=== PATIENT | male | born 1965 | race Caucasian/White ===

== ENCOUNTER 2018-05-26 10:59 | Inpatient (IN) | payer OTHER ==
[2018-05-26 11:42] VITALS: BMI 25.4
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
[2018-05-26] MEDS ORDERED: LOPERAMIDE HCL 2 MG CAPSULE PO PRN (12:27)
[2018-05-26] MEDS ORDERED: ACETAMINOPHEN 325 MG TABLET (FP) PO PRN (12:27)
[2018-05-26] MEDS ORDERED: hydrOXYzine PAMOATE 25 MG CAPSULE (FP) PO PRN (12:27)
[2018-05-26] MEDS ORDERED: P-EPHED 60MG/TRIPROLIDI 2.5MG TABLET PO PRN (12:27)
[2018-05-26] MEDS ORDERED: guaiFENesin/D-METHORPHAN HB 10 ML UNIT-DOSE CUPS PO PRN (12:27)
[2018-05-26] MEDS ORDERED: chlordiazePOXIDE HCL 25 MG CAPSULE PO PRN (12:27)
[2018-05-26] MEDS ORDERED: IBUPROFEN 400 MG TABLET (FP) PO PRN (12:27)
[2018-05-26] MEDS ORDERED: MAGNESIUM HYDROX 2400MG/30ML ORAL SUSPENSION 30 ML CUP PO PRN (12:27)
[2018-05-26] MEDS ORDERED: MAGNESIUM CITRATE 300 ML BOTTLE PO PRN (12:27)
[2018-05-26] MEDS ORDERED: MENTHOL/PHENOL 1 EACH UD MM PRN (12:27)
[2018-05-26] MEDS ORDERED: NICOTINE POLACRILEX 2 MG GUM BUC PRN (12:27)
[2018-05-26] MEDS: chlordiazePOXIDE HCL 25 MG CAPSULE PO SCH ×2 (17:29→22:35)
[2018-05-26] MEDS: MAG HYDROX/AL HYDROX/SIMETH 30 ML UNIT-DOSE CUP PO PRN (17:33)
[2018-05-26] MEDS ORDERED: MELATONIN 5 MG TABLETS PO PRN (22:00)
[2018-05-26] MEDS: THIAMINE HCL 100 MG TABLET (FP) PO SCH (22:35)
[2018-05-27] MEDS ORDERED: METHADONE HCL 10 MG TABLET ONE (04:22)
[2018-05-27] MEDS ORDERED: METHADONE HCL 5 MG TABLET ONE (04:23)
[2018-05-27] MEDS ORDERED: METHADONE 30 MG, METHADONE 5 MG PO ONE (06:00)
[2018-05-27] MEDS ORDERED: METHADONE HCL 10 MG TABLET (FOR DETOX USE ONLY) PO ONE (06:00)
[2018-05-27] MEDS: chlordiazePOXIDE HCL 25 MG CAPSULE PO SCH ×4 (06:15→22:49)
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
[2018-05-27] MEDS: PRENATAL VITAMINS W/ FOLIC ACID TABLET (FP) PO SCH (10:29)
[2018-05-27] MEDS: RANITIDINE HCL 150 MG TABLET (FP) PO SCH ×2 (10:30→22:49)
[2018-05-27 10:45] LABS: HEMATOCRIT 39.9 % (35.4-49); HEMOGLOBIN 13.8 GM/dL (11.7-16.9); MCH 30.3 pg (25.7-33.7); MCHC 34.6 g/dl (32.0-35.9); MEAN CELL VOLUME 87.4 fl (80-96); PLATELET COUNT 205 K/MM3 (134-434); RBC 4.56 M/mm3 (4.00-5.60); RDW 13.5 % (11.9-15.9); WHITE BLOOD COUNT 8.4 K/mm3 (4.0-10.0)
[2018-05-27 10:55] LABS: ALBUMIN 3.4 g/dl (3.4-5.0); ALK PHOS 56 U/L (45-117); ANION GAP 7 MMOL/L (8-16); BILIRUBIN,TOTAL 0.2 mg/dL (0.2-1); BLOOD UREA NITROGEN 13 mg/dL (7-18); CALCIUM 8.5 mg/dL (8.5-10.1); CHLORIDE 104 mmol/L (98-107); CO2 28 mmol/L (21-32); CREATININE 0.6 mg/dL (0.55-1.3); GLUCOSE,RANDOM 96 mg/dL (74-106); POTASSIUM 4.2 mmol/L (3.5-5.1); SGOT/AST 19 U/L (15-37); SGPT/ALT 21 U/L (13-61); SODIUM 138 mmol/L (136-145)
[2018-05-27] MEDS: MAG HYDROX/AL HYDROX/SIMETH 30 ML UNIT-DOSE CUP PO PRN (11:22)
--- NOTE | 2018-05-27 11:28 | PN ---
S CIWA - CIWA Score Nausea/Vomitin-Mild Nausea/No Vomiting Muscle Tremors: 4-Moderate,w/Arms Extend Anxiety: 2 Agitation: 2 Paroxysmal Sweats: 1-Minimal Palms Moist Orientation: 1-Uncertain about Date Tacttile Disturbances: 0-None Auditory Disturbances: 0-None Visual Disturbances: 0-None Headache: 1-Very Mild CIWA-Ar Total Score: 12 S Progress Note (SOAP) Subjective: tremor acid burn sweating restlessness Objective: 05/27/18 11:24 Vital Signs Temperature 97.6 F 05/27/18 09:34 Pulse Rate 66 05/27/18 09:34 Respiratory Rate 18 05/27/18 09:34 Blood Pressure 111/61 05/27/18 09:34 O2 Sat by Pulse Oximetry (%) Laboratory Last Values WBC 8.4 K/mm3 (4.0-10.0) 05/27/18 07:35 RBC 4.56 M/mm3 (4.00-5.60) 05/27/18 07:35 Hgb 13.8 GM/dL (11.7-16.9) 05/27/18 07:35 Hct 39.9 % (35.4-49) 05/27/18 07:35 MCV 87.4 fl (80-96) 05/27/18 07:35 MCH 30.3 pg (25.7-33.7) 05/27/18 07:35 MCHC 34.6 g/dl (32.0-35.9) 05/27/18 07:35 RDW 13.5 % (11.9-15.9) 05/27/18 07:35 Plt Count 205 K/MM3 (134-434) 05/27/18 07:35 MPV 9.0 fl (7.5-11.1) 05/27/18 07:35 Sodium 138 mmol/L (136-145) 05/27/18 07:35 Potassium 4.2 mmol/L (3.5-5.1) 05/27/18 07:35 Chloride 104 mmol/L (98-107) 05/27/18 07:35 Carbon Dioxide 28 mmol/L (21-32) 05/27/18 07:35 Anion Gap 7 MMOL/L (8-16) L 05/27/18 07:35 BUN 13 mg/dL (7-18) 05/27/18 07:35 Creatinine 0.6 mg/dL (0.55-1.3) 05/27/18 07:35 Creat Clearance w eGFR > 60 (>60) 05/27/18 07:35 Random Glucose 96 mg/dL (74-106) 05/27/18 07:35 Calcium 8.5 mg/dL (8.5-10.1) 05/27/18 07:35 Total Bilirubin 0.2 mg/dL (0.2-1) 05/27/18 07:35 AST 19 U/L (15-37) 05/27/18 07:35 ALT 21 U/L (13-61) 05/27/18 07:35 Alkaline Phosphatase 56 U/L (45-117) 05/27/18 07:35 Total Protein 8.0 g/dl (6.4-8.2) 05/27/18 07:35 Albumin 3.4 g/dl (3.4-5.0) 05/27/18 07:35 RPR Titer Nonreactive (NONREACTIVE) 05/27/18 07:35 lab noted oral pharyngeal membrane smooth no signs of inflammation denies trouble swallowing denies voice change no shortness of breath tolerate food and fluid well 05/27/18 11:25 Assessment: 05/27/18 11:24 alcohol withdrawal sx 05/27/18 11:25 GERD Plan: continue detox zantac 150 mg bid
[2018-05-27] MEDS: THIAMINE HCL 100 MG TABLET (FP) PO SCH (22:49)
[2018-05-28] MEDS: chlordiazePOXIDE HCL 25 MG CAPSULE PO SCH ×3 (05:39→10:09)
[2018-05-28] MEDS ORDERED: METHADONE HCL 10 MG TABLET PO SCH (08:00)
[2018-05-28] MEDS ORDERED: METHADONE HCL 10 MG TABLET ONE (08:41)
[2018-05-28] MEDS ORDERED: METHADONE HCL 5 MG TABLET ONE (08:41)
[2018-05-28] MEDS: METHADONE 30 MG, METHADONE 5 MG PO SCH (08:45)
[2018-05-28] MEDS: RANITIDINE HCL 150 MG TABLET (FP) PO SCH ×2 (10:09→22:06)
[2018-05-28] MEDS: PRENATAL VITAMINS W/ FOLIC ACID TABLET (FP) PO SCH (10:09)
--- NOTE | 2018-05-28 13:50 | PN ---
S CIWA - CIWA Score Nausea/Vomitin-No Nausea/No Vomiting Muscle Tremors: 2 Anxiety: 1-Mildly Anxious Agitation: 1-Slight > Activity Paroxysmal Sweats: 1-Minimal Palms Moist Orientation: 1-Uncertain about Date Tacttile Disturbances: 0-None Auditory Disturbances: 0-None Visual Disturbances: 0-None Headache: 1-Very Mild CIWA-Ar Total Score: 7 S Progress Note (SOAP) Subjective: tremor sweating restlessness sleep better last night Objective: 05/28/18 13:49 Vital Signs Temperature 97.2 F L 05/28/18 13:45 Pulse Rate 61 05/28/18 13:45 Respiratory Rate 18 05/28/18 13:45 Blood Pressure 109/71 05/28/18 13:45 O2 Sat by Pulse Oximetry (%) Laboratory Last Values WBC 8.4 K/mm3 (4.0-10.0) 05/27/18 07:35 RBC 4.56 M/mm3 (4.00-5.60) 05/27/18 07:35 Hgb 13.8 GM/dL (11.7-16.9) 05/27/18 07:35 Hct 39.9 % (35.4-49) 05/27/18 07:35 MCV 87.4 fl (80-96) 05/27/18 07:35 MCH 30.3 pg (25.7-33.7) 05/27/18 07:35 MCHC 34.6 g/dl (32.0-35.9) 05/27/18 07:35 RDW 13.5 % (11.9-15.9) 05/27/18 07:35 Plt Count 205 K/MM3 (134-434) 05/27/18 07:35 MPV 9.0 fl (7.5-11.1) 05/27/18 07:35 Sodium 138 mmol/L (136-145) 05/27/18 07:35 Potassium 4.2 mmol/L (3.5-5.1) 05/27/18 07:35 Chloride 104 mmol/L (98-107) 05/27/18 07:35 Carbon Dioxide 28 mmol/L (21-32) 05/27/18 07:35 Anion Gap 7 MMOL/L (8-16) L 05/27/18 07:35 BUN 13 mg/dL (7-18) 05/27/18 07:35 Creatinine 0.6 mg/dL (0.55-1.3) 05/27/18 07:35 Creat Clearance w eGFR > 60 (>60) 05/27/18 07:35 Random Glucose 96 mg/dL (74-106) 05/27/18 07:35 Calcium 8.5 mg/dL (8.5-10.1) 05/27/18 07:35 Total Bilirubin 0.2 mg/dL (0.2-1) 05/27/18 07:35 AST 19 U/L (15-37) 05/27/18 07:35 ALT 21 U/L (13-61) 05/27/18 07:35 Alkaline Phosphatase 56 U/L (45-117) 05/27/18 07:35 Total Protein 8.0 g/dl (6.4-8.2) 05/27/18 07:35 Albumin 3.4 g/dl (3.4-5.0) 05/27/18 07:35 RPR Titer Nonreactive (NONREACTIVE) 05/27/18 07:35 lab noted Assessment: 05/28/18 13:49 withdrawal sx Plan: continue detox social with peers in day room
[2018-05-28] MEDS: chlordiazePOXIDE 5 MG CAPSULE PO SCH ×2 (17:28→22:06)
[2018-05-28] MEDS: THIAMINE HCL 100 MG TABLET (FP) PO SCH (22:06)
[2018-05-29] MEDS ORDERED: METHADONE HCL 5 MG TABLET ONE (04:48)
[2018-05-29] MEDS ORDERED: METHADONE HCL 10 MG TABLET ONE (04:48)
[2018-05-29] MEDS: chlordiazePOXIDE 5 MG CAPSULE PO SCH ×2 (05:38→10:34)
[2018-05-29] MEDS: METHADONE 30 MG, METHADONE 5 MG PO SCH (05:38)
[2018-05-29] MEDS: RANITIDINE HCL 150 MG TABLET (FP) PO SCH ×2 (10:34→23:08)
[2018-05-29] MEDS: PRENATAL VITAMINS W/ FOLIC ACID TABLET (FP) PO SCH (10:35)
--- NOTE | 2018-05-29 15:19 | PN ---
S CIWA - CIWA Score Nausea/Vomitin-No Nausea/No Vomiting Muscle Tremors: 2 Anxiety: 1-Mildly Anxious Agitation: 1-Slight > Activity Paroxysmal Sweats: 1-Minimal Palms Moist Orientation: 0-Oriented Tacttile Disturbances: 0-None Auditory Disturbances: 0-None Visual Disturbances: 0-None Headache: 0-None Present CIWA-Ar Total Score: 5 BHS Progress Note (SOAP) Subjective: feeling better less tremor mild sweating patient agrees to return to methadone maintenance treatment program for medical and mental issues patient wants valium or xanax for alcohol detox patient is going to be discharged tomorrow that he can sleep better at night Objective: 05/29/18 15:18 Vital Signs Temperature 96.7 F L 05/29/18 14:05 Pulse Rate 72 05/29/18 14:05 Respiratory Rate 18 05/29/18 14:05 Blood Pressure 112/72 05/29/18 14:05 O2 Sat by Pulse Oximetry (%) Laboratory Last Values WBC 8.4 K/mm3 (4.0-10.0) 05/27/18 07:35 RBC 4.56 M/mm3 (4.00-5.60) 05/27/18 07:35 Hgb 13.8 GM/dL (11.7-16.9) 05/27/18 07:35 Hct 39.9 % (35.4-49) 05/27/18 07:35 MCV 87.4 fl (80-96) 05/27/18 07:35 MCH 30.3 pg (25.7-33.7) 05/27/18 07:35 MCHC 34.6 g/dl (32.0-35.9) 05/27/18 07:35 RDW 13.5 % (11.9-15.9) 05/27/18 07:35 Plt Count 205 K/MM3 (134-434) 05/27/18 07:35 MPV 9.0 fl (7.5-11.1) 05/27/18 07:35 Sodium 138 mmol/L (136-145) 05/27/18 07:35 Potassium 4.2 mmol/L (3.5-5.1) 05/27/18 07:35 Chloride 104 mmol/L (98-107) 05/27/18 07:35 Carbon Dioxide 28 mmol/L (21-32) 05/27/18 07:35 Anion Gap 7 MMOL/L (8-16) L 05/27/18 07:35 BUN 13 mg/dL (7-18) 05/27/18 07:35 Creatinine 0.6 mg/dL (0.55-1.3) 05/27/18 07:35 Creat Clearance w eGFR > 60 (>60) 05/27/18 07:35 Random Glucose 96 mg/dL (74-106) 05/27/18 07:35 Calcium 8.5 mg/dL (8.5-10.1) 05/27/18 07:35 Total Bilirubin 0.2 mg/dL (0.2-1) 05/27/18 07:35 AST 19 U/L (15-37) 05/27/18 07:35 ALT 21 U/L (13-61) 05/27/18 07:35 Alkaline Phosphatase 56 U/L (45-117) 05/27/18 07:35 Total Protein 8.0 g/dl (6.4-8.2) 05/27/18 07:35 Albumin 3.4 g/dl (3.4-5.0) 05/27/18 07:35 RPR Titer Nonreactive (NONREACTIVE) 05/27/18 07:35 lab noted Assessment: 05/29/18 15:19 mild withdrawal sx Plan: continue detox
[2018-05-29] MEDS: chlordiazePOXIDE HCL 10 MG CAPSULE PO SCH ×2 (17:20→23:09)
[2018-05-29] MEDS: THIAMINE HCL 100 MG TABLET (FP) PO SCH (23:08)
[2018-05-30] MEDS ORDERED: METHADONE HCL 10 MG TABLET ONE (04:48)
[2018-05-30] MEDS ORDERED: METHADONE HCL 5 MG TABLET ONE (04:48)
[2018-05-30] MEDS: chlordiazePOXIDE HCL 10 MG CAPSULE PO SCH ×2 (05:28→10:04)
[2018-05-30] MEDS: METHADONE 30 MG, METHADONE 5 MG PO SCH (05:29)
[2018-05-30 09:38] VITALS: BP 122/73; PULSE 65; TEMP 97.6
[2018-05-30] MEDS: RANITIDINE HCL 150 MG TABLET (FP) PO SCH (10:05)
[2018-05-30] MEDS: PRENATAL VITAMINS W/ FOLIC ACID TABLET (FP) PO SCH (10:05)
--- NOTE | 2018-05-30 11:18 | DS ---
[facility] Detox Discharge Summary Admission Date: 05/26/18 Discharge Date: 05/30/18 - History Present History: Alcohol Dependence Additional Comments: 53 years old male admitted on 05/26/18 for alcohol withdrawal stabilization completed alcohol detox regimen aftercare [facility] Pertinent Past History: bipolar II schizophrenia psychiatric consultation referred - Physical Exam Results Vital Signs: Vital Signs Temperature 97.6 F 05/30/18 09:38 Pulse Rate 65 05/30/18 09:38 Respiratory Rate 18 05/30/18 09:38 Blood Pressure 122/73 05/30/18 09:38 O2 Sat by Pulse Oximetry (%) Pertinent Admission Physical Exam Findings: alcohol withdrawal sx Laboratory Last Values WBC 8.4 K/mm3 (4.0-10.0) 05/27/18 07:35 RBC 4.56 M/mm3 (4.00-5.60) 05/27/18 07:35 Hgb 13.8 GM/dL (11.7-16.9) 05/27/18 07:35 Hct 39.9 % (35.4-49) 05/27/18 07:35 MCV 87.4 fl (80-96) 05/27/18 07:35 MCH 30.3 pg (25.7-33.7) 05/27/18 07:35 MCHC 34.6 g/dl (32.0-35.9) 05/27/18 07:35 RDW 13.5 % (11.9-15.9) 05/27/18 07:35 Plt Count 205 K/MM3 (134-434) 05/27/18 07:35 MPV 9.0 fl (7.5-11.1) 05/27/18 07:35 Sodium 138 mmol/L (136-145) 05/27/18 07:35 Potassium 4.2 mmol/L (3.5-5.1) 05/27/18 07:35 Chloride 104 mmol/L (98-107) 05/27/18 07:35 Carbon Dioxide 28 mmol/L (21-32) 05/27/18 07:35 Anion Gap 7 MMOL/L (8-16) L 05/27/18 07:35 BUN 13 mg/dL (7-18) 05/27/18 07:35 Creatinine 0.6 mg/dL (0.55-1.3) 05/27/18 07:35 Creat Clearance w eGFR > 60 (>60) 05/27/18 07:35 Random Glucose 96 mg/dL (74-106) 05/27/18 07:35 Calcium 8.5 mg/dL (8.5-10.1) 05/27/18 07:35 Total Bilirubin 0.2 mg/dL (0.2-1) 05/27/18 07:35 AST 19 U/L (15-37) 05/27/18 07:35 ALT 21 U/L (13-61) 05/27/18 07:35 Alkaline Phosphatase 56 U/L (45-117) 05/27/18 07:35 Total Protein 8.0 g/dl (6.4-8.2) 05/27/18 07:35 Albumin 3.4 g/dl (3.4-5.0) 05/27/18 07:35 RPR Titer Nonreactive (NONREACTIVE) 05/27/18 07:35 lab noted - Treatment Hospital Course: Detox Protocol Followed, Detoxed Safely, Responded well, Discharged Condition Good, Rehab Referral Accepted Patient has Accepted a Rehab Referral to: [facility] - Medication Discharge Medications: Ambulatory Orders Divalproex [Depakote -] 500 mg PO BID 11/03/11 Mirtazapine [Remeron -] 15 mg PO HS 12/29/11 Quetiapine Fumarate [Seroquel -] 50 mg PO HS #30 tablet 07/12/17 Methadone (Detox) [Dolophine -] 35 mg PO DAILY 05/26/18 - Diagnosis (1) Hepatitis C virus infection cured after antiviral drug therapy Current Visit: Yes Status: Chronic (2) Alcohol dependence with uncomplicated withdrawal Current Visit: Yes Status: Acute (3) Methadone maintenance therapy patient Current Visit: Yes Status: Chronic (4) PPD positive Current Visit: Yes Status: Resolved (5) Bipolar disorder Current Visit: Yes Status: Suspected (6) Human immunodeficiency virus infection Current Visit: Yes Status: Chronic - AMA Did Patient Leave Against Medical Advice: No
== END 2018-05-30 12:40 | disposition other institution (70) | DRG 773 ==
LOC: YASAS 10:59 → Y3N 13:40
PROVIDERS: ADMIT Surgery; ATTEND Surgery
PROC: HZ2ZZZZ Detoxification Services for Substance Abuse Treatment (ICD-10-PCS; principal; 2018-05-26)
DX: F10.230 Alcohol dependence with withdrawal, uncomplicated (principal); F11.20 Opioid dependence, uncomplicated; F13.20 Sedative, hypnotic or anxiolytic dependence, uncomplicated; F14.20 Cocaine dependence, uncomplicated; F17.210 Nicotine dependence, cigarettes, uncomplicated; F31.9 Bipolar disorder, unspecified; Z21 Asymptomatic human immunodeficiency virus [HIV] infection status; B18.2 Chronic viral hepatitis C; R76.11 Nonspecific reaction to tuberculin skin test without active tuberculosis; K21.9 Gastro-esophageal reflux disease without esophagitis; Z86.69 Personal history of other diseases of the nervous system and sense organs
CPT/HCPCS: 36415; 71046-TC-FY; 80053; 85027; 86593

== ENCOUNTER 2018-05-30 12:49 | Inpatient (IN) | payer OTHER ==
--- NOTE | 2018-05-30 11:19 | HP ---
[facility] Rehab Assess/Revision - Admission History Admitted to Rehab from: [facility] Date of Admission to Rehab: 05/30/18 - Findings Detox History & Physical reviewed: Yes Concur with findings: Yes Comments/Additional Findings: transferred from detox to rehab admission as per protocol Inpatient Rehab Admission - Rehab Decision to Admit Inpatient rehab admission?: Yes - Initial Determination Are CD services needed?: Yes Free of communicable disease: Yes Not in need of hospitalization: Yes - Rehab Admission Criteria Previous failed treatment: Yes Poor recovery environment: Yes Comorbidities: Yes Lacks judgement: No Patient is meeting Inpatient Rehab admission criteria:: Yes
[~2018-05-30 12:49] MED LIST: ACETAMINOPHEN 325 MG TABLET (FP) PO PRN; LOPERAMIDE HCL 2 MG CAPSULE PO PRN; MAG HYDROX/AL HYDROX/SIMETH 30 ML UNIT-DOSE CUP PO PRN; MAGNESIUM CITRATE 300 ML BOTTLE PO PRN; MAGNESIUM HYDROX 2400MG/30ML ORAL SUSPENSION 30 ML CUP PO PRN; MENTHOL/PHENOL 1 EACH UD MM PRN; NICOTINE 14 MG/24 HOURS TOPICAL PATCH TD PRN; NICOTINE POLACRILEX 2 MG GUM BUC PRN; P-EPHED 60MG/TRIPROLIDI 2.5MG TABLET PO PRN; guaiFENesin 200 MG/10 ML 10 ML UNIT-DOSE CUPS PO PRN
[2018-05-30] MEDS ORDERED: LOPERAMIDE HCL 2 MG CAPSULE PO PRN (14:48)
[2018-05-30] MEDS ORDERED: P-EPHED 60MG/TRIPROLIDI 2.5MG TABLET PO PRN (14:48)
[2018-05-30] MEDS ORDERED: ACETAMINOPHEN 325 MG TABLET (FP) PO PRN (14:48)
[2018-05-30] MEDS ORDERED: guaiFENesin 200 MG/10 ML 10 ML UNIT-DOSE CUPS PO PRN (14:48)
[2018-05-30] MEDS ORDERED: MAGNESIUM CITRATE 300 ML BOTTLE PO PRN (14:48)
[2018-05-30] MEDS ORDERED: IBUPROFEN 400 MG TABLET (FP) PO PRN (14:48)
[2018-05-30] MEDS ORDERED: MAGNESIUM HYDROX 2400MG/30ML ORAL SUSPENSION 30 ML CUP PO PRN (14:48)
[2018-05-30] MEDS ORDERED: MENTHOL/PHENOL 1 EACH UD MM PRN (14:48)
[2018-05-30] MEDS ORDERED: MAG HYDROX/AL HYDROX/SIMETH 30 ML UNIT-DOSE CUP PO PRN (14:48)
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
[2018-05-30] MEDS ORDERED: THIAMINE HCL 100 MG TABLET (FP) PO SCH (22:00)
[2018-05-30] MEDS ORDERED: MELATONIN 5 MG TABLETS PO PRN (22:00)
[2018-05-30] MEDS: MELATONIN 5 MG TABLETS PO PRN (22:03)
[2018-05-30] MEDS: THIAMINE HCL 100 MG TABLET (FP) PO SCH (22:03)
[2018-05-31] MEDS ORDERED: METHADONE HCL 10 MG TABLET PO SCH (06:00)
[2018-05-31] MEDS ORDERED: METHADONE HCL 5 MG TABLET ONE (06:33)
[2018-05-31] MEDS: METHADONE 30 MG, METHADONE 5 MG PO SCH (06:34)
[2018-05-31] MEDS ORDERED: METHADONE HCL 10 MG TABLET ONE (06:34)
[2018-05-31] MEDS ORDERED: PRENATAL VITAMINS W/ FOLIC ACID TABLET (FP) PO SCH (10:00)
[2018-05-31] MEDS: PRENATAL VITAMINS W/ FOLIC ACID TABLET (FP) PO SCH (11:05)
--- NOTE | 2018-05-31 12:49 | PN ---
S Progress Note (SOAP) Subjective: Client c/o abdominal discomfort, belching after eating. Objective: 05/31/18 12:48 abdomen soft, non-tender, nondistended. positive bowel sounds. Assessment: 05/31/18 12:48 GERD Plan: Protonix started
[2018-05-31] MEDS: PANTOPRAZOLE 40 MG TABLET (FP) PO SCH (19:25)
[2018-05-31] MEDS: MELATONIN 5 MG TABLETS PO PRN (21:55)
[2018-05-31] MEDS: THIAMINE HCL 100 MG TABLET (FP) PO SCH (21:55)
[2018-06-01] MEDS ORDERED: METHADONE HCL 10 MG TABLET ONE (04:36)
[2018-06-01] MEDS ORDERED: METHADONE HCL 5 MG TABLET ONE (04:36)
[2018-06-01] MEDS: METHADONE 30 MG, METHADONE 5 MG PO SCH (06:04)
[2018-06-01] MEDS: PRENATAL VITAMINS W/ FOLIC ACID TABLET (FP) PO SCH (10:09)
[2018-06-01] MEDS: PANTOPRAZOLE 40 MG TABLET (FP) PO SCH (10:09)
[2018-06-01] MEDS: MELATONIN 5 MG TABLETS PO PRN (23:26)
[2018-06-01] MEDS: THIAMINE HCL 100 MG TABLET (FP) PO SCH (23:26)
[2018-06-02] MEDS ORDERED: METHADONE HCL 10 MG TABLET ONE (05:07)
[2018-06-02] MEDS ORDERED: METHADONE HCL 5 MG TABLET ONE (05:07)
[2018-06-02] MEDS: METHADONE 30 MG, METHADONE 5 MG PO SCH (06:19)
[2018-06-02] MEDS: PRENATAL VITAMINS W/ FOLIC ACID TABLET (FP) PO SCH (09:55)
[2018-06-02] MEDS: PANTOPRAZOLE 40 MG TABLET (FP) PO SCH (09:55)
[2018-06-02] MEDS: THIAMINE HCL 100 MG TABLET (FP) PO SCH (21:18)
[2018-06-02] MEDS: MELATONIN 5 MG TABLETS PO PRN (21:19)
[2018-06-02] MEDS: IBUPROFEN 400 MG TABLET (FP) PO PRN (22:34)
[2018-06-03] MEDS ORDERED: METHADONE HCL 10 MG TABLET ONE (03:07)
[2018-06-03] MEDS ORDERED: METHADONE HCL 5 MG TABLET ONE (03:08)
[2018-06-03] MEDS: METHADONE 30 MG, METHADONE 5 MG PO SCH (06:16)
[2018-06-03] MEDS: PANTOPRAZOLE 40 MG TABLET (FP) PO SCH (10:10)
[2018-06-03] MEDS: PRENATAL VITAMINS W/ FOLIC ACID TABLET (FP) PO SCH (10:10)
[2018-06-03] MEDS: MELATONIN 5 MG TABLETS PO PRN (21:27)
[2018-06-03] MEDS: THIAMINE HCL 100 MG TABLET (FP) PO SCH (21:27)
[2018-06-04] MEDS ORDERED: METHADONE HCL 10 MG TABLET ONE (03:58)
[2018-06-04] MEDS ORDERED: METHADONE HCL 5 MG TABLET ONE (03:58)
[2018-06-04] MEDS: METHADONE 30 MG, METHADONE 5 MG PO SCH (05:56)
[2018-06-04] MEDS: PRENATAL VITAMINS W/ FOLIC ACID TABLET (FP) PO SCH (10:05)
[2018-06-04] MEDS: PANTOPRAZOLE 40 MG TABLET (FP) PO SCH (10:05)
[2018-06-04] MEDS: MELATONIN 5 MG TABLETS PO PRN (21:20)
[2018-06-04] MEDS: THIAMINE HCL 100 MG TABLET (FP) PO SCH (21:20)
[2018-06-04] MEDS: IBUPROFEN 400 MG TABLET (FP) PO PRN (22:48)
[2018-06-05] MEDS ORDERED: METHADONE HCL 5 MG TABLET ONE (04:14)
[2018-06-05] MEDS ORDERED: METHADONE HCL 10 MG TABLET ONE (04:14)
[2018-06-05] MEDS: METHADONE 30 MG, METHADONE 5 MG PO SCH (05:52)
[2018-06-05] MEDS: IBUPROFEN 400 MG TABLET (FP) PO PRN ×2 (10:33→21:31)
[2018-06-05] MEDS: PRENATAL VITAMINS W/ FOLIC ACID TABLET (FP) PO SCH (10:33)
[2018-06-05] MEDS: PANTOPRAZOLE 40 MG TABLET (FP) PO SCH (10:33)
[2018-06-05] MEDS: THIAMINE HCL 100 MG TABLET (FP) PO SCH (21:30)
[2018-06-05] MEDS: MELATONIN 5 MG TABLETS PO PRN (21:31)
[2018-06-06] MEDS ORDERED: METHADONE HCL 5 MG TABLET ONE (05:37)
[2018-06-06] MEDS ORDERED: METHADONE HCL 10 MG TABLET ONE (05:37)
[2018-06-06] MEDS: METHADONE 30 MG, METHADONE 5 MG PO SCH (05:58)
[2018-06-06] MEDS: PANTOPRAZOLE 40 MG TABLET (FP) PO SCH (10:30)
[2018-06-06] MEDS: PRENATAL VITAMINS W/ FOLIC ACID TABLET (FP) PO SCH (10:30)
[2018-06-06] MEDS: THIAMINE HCL 100 MG TABLET (FP) PO SCH (21:21)
[2018-06-06] MEDS: MELATONIN 5 MG TABLETS PO PRN (21:21)
[2018-06-07] MEDS ORDERED: METHADONE HCL 5 MG TABLET ONE (03:18)
[2018-06-07] MEDS ORDERED: METHADONE HCL 10 MG TABLET ONE (03:18)
[2018-06-07] MEDS: METHADONE 30 MG, METHADONE 5 MG PO SCH (06:04)
[2018-06-07] MEDS ORDERED: MINERAL OIL/PETROLAT/WATER TOPICAL CREAM 113 GM JAR TP PRN (09:15)
[2018-06-07] MEDS: PRENATAL VITAMINS W/ FOLIC ACID TABLET (FP) PO SCH (10:29)
[2018-06-07] MEDS: PANTOPRAZOLE 40 MG TABLET (FP) PO SCH (10:29)
[2018-06-07] MEDS: MELATONIN 5 MG TABLETS PO PRN (21:53)
[2018-06-07] MEDS: THIAMINE HCL 100 MG TABLET (FP) PO SCH (21:53)
[2018-06-07] MEDS: IBUPROFEN 400 MG TABLET (FP) PO PRN (21:53)
[2018-06-08] MEDS ORDERED: METHADONE HCL 10 MG TABLET ONE (02:44)
[2018-06-08] MEDS ORDERED: METHADONE HCL 5 MG TABLET ONE (02:44)
[2018-06-08] MEDS: COLLOIDAL OATMEAL 1 BAR EACH TP PRN (06:08)
[2018-06-08] MEDS: METHADONE 30 MG, METHADONE 5 MG PO SCH (06:09)
[2018-06-08] MEDS: PRENATAL VITAMINS W/ FOLIC ACID TABLET (FP) PO SCH (10:12)
[2018-06-08] MEDS: PANTOPRAZOLE 40 MG TABLET (FP) PO SCH (10:13)
[2018-06-08] MEDS: THIAMINE HCL 100 MG TABLET (FP) PO SCH (21:34)
[2018-06-08] MEDS: MELATONIN 5 MG TABLETS PO PRN (21:34)
[2018-06-08] MEDS: IBUPROFEN 400 MG TABLET (FP) PO PRN (21:34)
[2018-06-09] MEDS ORDERED: METHADONE HCL 10 MG TABLET ONE (04:08)
[2018-06-09] MEDS ORDERED: METHADONE HCL 5 MG TABLET ONE (04:08)
[2018-06-09] MEDS: METHADONE 30 MG, METHADONE 5 MG PO SCH (06:19)
[2018-06-09] MEDS: PRENATAL VITAMINS W/ FOLIC ACID TABLET (FP) PO SCH (10:24)
[2018-06-09] MEDS: PANTOPRAZOLE 40 MG TABLET (FP) PO SCH (10:24)
[2018-06-09] MEDS: THIAMINE HCL 100 MG TABLET (FP) PO SCH (21:25)
[2018-06-09] MEDS: MELATONIN 5 MG TABLETS PO PRN (21:25)
[2018-06-10] MEDS ORDERED: METHADONE HCL 5 MG TABLET ONE (04:01)
[2018-06-10] MEDS ORDERED: METHADONE HCL 10 MG TABLET ONE (04:01)
[2018-06-10] MEDS: METHADONE 30 MG, METHADONE 5 MG PO SCH (06:30)
[2018-06-10] MEDS: PANTOPRAZOLE 40 MG TABLET (FP) PO SCH (10:59)
[2018-06-10] MEDS: PRENATAL VITAMINS W/ FOLIC ACID TABLET (FP) PO SCH (10:59)
[2018-06-10] MEDS: THIAMINE HCL 100 MG TABLET (FP) PO SCH (22:33)
[2018-06-10] MEDS: MELATONIN 5 MG TABLETS PO PRN (22:33)
[2018-06-11] MEDS ORDERED: METHADONE HCL 5 MG TABLET ONE (03:39)
[2018-06-11] MEDS ORDERED: METHADONE HCL 10 MG TABLET ONE (03:39)
[2018-06-11] MEDS: METHADONE 30 MG, METHADONE 5 MG PO SCH (06:07)
[2018-06-11] MEDS: PANTOPRAZOLE 40 MG TABLET (FP) PO SCH (10:29)
[2018-06-11] MEDS: PRENATAL VITAMINS W/ FOLIC ACID TABLET (FP) PO SCH (10:29)
[2018-06-11] MEDS: IBUPROFEN 400 MG TABLET (FP) PO PRN (21:45)
[2018-06-11] MEDS: THIAMINE HCL 100 MG TABLET (FP) PO SCH (21:45)
[2018-06-11] MEDS: MELATONIN 5 MG TABLETS PO PRN (21:46)
[2018-06-12] MEDS ORDERED: METHADONE HCL 10 MG TABLET ONE (04:25)
[2018-06-12] MEDS ORDERED: METHADONE HCL 5 MG TABLET ONE (04:25)
[2018-06-12] MEDS: METHADONE 30 MG, METHADONE 5 MG PO SCH (05:53)
[2018-06-12] MEDS: PRENATAL VITAMINS W/ FOLIC ACID TABLET (FP) PO SCH (10:14)
[2018-06-12] MEDS: PANTOPRAZOLE 40 MG TABLET (FP) PO SCH (10:14)
--- NOTE | 2018-06-12 11:16 | PN ---
[facility] Progress Note Note: Client requested HIV test. Last test documented in the chart was 2011. However , the problem list states he has HIV. HIV test order discontinued.
--- NOTE | 2018-06-12 11:41 | PN ---
S Progress Note (SOAP) Subjective: c/o left ear pain. States when chewing his ear "pops." Objective: 06/12/18 11:38 Unable to visualize tympanic membrane, left ear-cerumen. no tenderness to palpation. 06/12/18 11:39 Assessment: 06/12/18 11:40 excessive cerumen Plan: debrox ordered.
--- NOTE | 2018-06-12 11:42 | PN ---
S Progress Note (SOAP) Subjective: c/o groin rash; refusing to allow this provider to see rash. Requesting bacitracin Objective: 06/12/18 11:41 Unable to see rash, client refusing examination. Assessment: Report of groin rash 06/12/18 11:42 Plan: Bacitracin ordered.
[2018-06-12] MEDS: MELATONIN 5 MG TABLETS PO PRN (21:24)
[2018-06-12] MEDS: THIAMINE HCL 100 MG TABLET (FP) PO SCH (21:24)
[2018-06-12] MEDS: CARBAMIDE PEROXIDE 6.5% OTIC 15 ML BOTTLE AS SCH (21:25)
[2018-06-13] MEDS ORDERED: METHADONE HCL 10 MG TABLET ONE (05:35)
[2018-06-13] MEDS ORDERED: METHADONE HCL 5 MG TABLET ONE (05:35)
[2018-06-13] MEDS: METHADONE 30 MG, METHADONE 5 MG PO SCH (05:53)
[2018-06-13] MEDS: CARBAMIDE PEROXIDE 6.5% OTIC 15 ML BOTTLE AS SCH ×2 (09:48→21:16)
[2018-06-13] MEDS: PANTOPRAZOLE 40 MG TABLET (FP) PO SCH (09:48)
[2018-06-13] MEDS: BACITRACIN 0.9 GM PACKET TP SCH (09:48)
[2018-06-13] MEDS: PRENATAL VITAMINS W/ FOLIC ACID TABLET (FP) PO SCH (09:48)
[2018-06-13] MEDS: THIAMINE HCL 100 MG TABLET (FP) PO SCH (21:15)
[2018-06-13] MEDS: MELATONIN 5 MG TABLETS PO PRN (21:15)
[2018-06-14] MEDS ORDERED: METHADONE HCL 5 MG TABLET ONE (04:00)
[2018-06-14] MEDS ORDERED: METHADONE HCL 10 MG TABLET ONE (04:00)
[2018-06-14] MEDS: METHADONE 30 MG, METHADONE 5 MG PO SCH (05:54)
[2018-06-14] MEDS: PANTOPRAZOLE 40 MG TABLET (FP) PO SCH (10:41)
[2018-06-14] MEDS: CARBAMIDE PEROXIDE 6.5% OTIC 15 ML BOTTLE AS SCH ×2 (10:41→22:00)
[2018-06-14] MEDS: BACITRACIN 0.9 GM PACKET TP SCH (10:41)
[2018-06-14] MEDS: PRENATAL VITAMINS W/ FOLIC ACID TABLET (FP) PO SCH (10:41)
[2018-06-14] MEDS: MELATONIN 5 MG TABLETS PO PRN (21:49)
[2018-06-14] MEDS: THIAMINE HCL 100 MG TABLET (FP) PO SCH (21:49)
[2018-06-15] MEDS ORDERED: METHADONE HCL 10 MG TABLET ONE (03:48)
[2018-06-15] MEDS ORDERED: METHADONE HCL 5 MG TABLET ONE (03:48)
[2018-06-15] MEDS: METHADONE 30 MG, METHADONE 5 MG PO SCH (05:56)
[2018-06-15] MEDS: BACITRACIN 0.9 GM PACKET TP SCH (09:51)
[2018-06-15] MEDS: CARBAMIDE PEROXIDE 6.5% OTIC 15 ML BOTTLE AS SCH ×2 (09:52→21:38)
[2018-06-15] MEDS: PANTOPRAZOLE 40 MG TABLET (FP) PO SCH (09:52)
[2018-06-15] MEDS: PRENATAL VITAMINS W/ FOLIC ACID TABLET (FP) PO SCH (09:52)
[2018-06-15] MEDS: COLLOIDAL OATMEAL 1 BAR EACH TP PRN (09:53)
[2018-06-15] MEDS ORDERED: PT OWN MED DRAWER 7, Y5N ONE (09:53)
[2018-06-15] MEDS: THIAMINE HCL 100 MG TABLET (FP) PO SCH (21:37)
[2018-06-15] MEDS: MELATONIN 5 MG TABLETS PO PRN (21:37)
[2018-06-15] MEDS: IBUPROFEN 400 MG TABLET (FP) PO PRN (21:37)
[2018-06-16] MEDS ORDERED: METHADONE HCL 10 MG TABLET ONE (03:39)
[2018-06-16] MEDS ORDERED: METHADONE HCL 5 MG TABLET ONE (03:40)
[2018-06-16] MEDS: METHADONE 30 MG, METHADONE 5 MG PO SCH (06:17)
[2018-06-16] MEDS: CARBAMIDE PEROXIDE 6.5% OTIC 15 ML BOTTLE AS SCH ×2 (09:59→21:40)
[2018-06-16] MEDS: PANTOPRAZOLE 40 MG TABLET (FP) PO SCH (09:59)
[2018-06-16] MEDS: PRENATAL VITAMINS W/ FOLIC ACID TABLET (FP) PO SCH (09:59)
[2018-06-16] MEDS: BACITRACIN 0.9 GM PACKET TP SCH (10:00)
[2018-06-16] MEDS: MELATONIN 5 MG TABLETS PO PRN (21:39)
[2018-06-16] MEDS: THIAMINE HCL 100 MG TABLET (FP) PO SCH (21:39)
[2018-06-16] MEDS: IBUPROFEN 400 MG TABLET (FP) PO PRN (21:39)
[2018-06-17] MEDS ORDERED: METHADONE HCL 5 MG TABLET ONE (02:53)
[2018-06-17] MEDS ORDERED: METHADONE HCL 10 MG TABLET ONE (02:53)
[2018-06-17] MEDS: METHADONE 30 MG, METHADONE 5 MG PO SCH (06:01)
[2018-06-17] MEDS: PRENATAL VITAMINS W/ FOLIC ACID TABLET (FP) PO SCH (10:01)
[2018-06-17] MEDS: BACITRACIN 0.9 GM PACKET TP SCH (10:01)
[2018-06-17] MEDS: PANTOPRAZOLE 40 MG TABLET (FP) PO SCH (10:01)
[2018-06-17] MEDS: CARBAMIDE PEROXIDE 6.5% OTIC 15 ML BOTTLE AS SCH ×2 (10:01→21:39)
[2018-06-17] MEDS: IBUPROFEN 400 MG TABLET (FP) PO PRN (21:13)
[2018-06-17] MEDS: MELATONIN 5 MG TABLETS PO PRN (21:13)
[2018-06-17] MEDS: THIAMINE HCL 100 MG TABLET (FP) PO SCH (21:13)
[2018-06-18] MEDS ORDERED: METHADONE HCL 10 MG TABLET ONE (03:55)
[2018-06-18] MEDS ORDERED: METHADONE HCL 5 MG TABLET ONE (03:55)
[2018-06-18] MEDS: METHADONE 30 MG, METHADONE 5 MG PO SCH (05:57)
[2018-06-18 06:54] VITALS: BP 134/86; PULSE 74; TEMP 98.7
--- NOTE | 2018-06-18 08:43 | PN ---
[facility] Progress Note Note: REHAB DISCHARGE NOTE: PATIENT COMPLETED REHAB TREATMENT TODAY AND REPORTS ACCOMPLISHING ALL REHAB GOALS. PATIENT'S AFTERCARE HAS BEEN ARRANGED AT [facility]. PATIENT ENCOURAGED TO CONTINUE WITH AFTERCARE TREATMENT TO PREVENT RELAPSE AND TO FOLLOW UP WITH PCP WITHIN ONE WEEK OF DISCHARGE TO CONTINUE MEDICAL MANAGEMENT. PATIENT MEDICALLY STABLE AND DENIES SI/HI. Vital Signs Temperature 98.7 F 06/18/18 06:52 Pulse Rate 74 06/18/18 06:52 Respiratory Rate 18 06/18/18 06:52 Blood Pressure 134/86 06/18/18 06:52 O2 Sat by Pulse Oximetry (%) Ambulatory Orders Divalproex [Depakote -] 500 mg PO BID 11/03/11 Mirtazapine [Remeron -] 15 mg PO HS 12/29/11 Quetiapine Fumarate [Seroquel -] 50 mg PO HS #30 tablet 07/12/17 Methadone (Detox) [Dolophine -] 35 mg PO DAILY 05/26/18 Ranitidine HCl [Zantac] 150 mg PO DAILY 05/30/18
[2018-06-18] MEDS: BACITRACIN 0.9 GM PACKET TP SCH (09:22)
[2018-06-18] MEDS: CARBAMIDE PEROXIDE 6.5% OTIC 15 ML BOTTLE AS SCH (09:23)
[2018-06-18] MEDS: PRENATAL VITAMINS W/ FOLIC ACID TABLET (FP) PO SCH (09:23)
[2018-06-18] MEDS: PANTOPRAZOLE 40 MG TABLET (FP) PO SCH (09:23)
[2018-06-19] MEDS ORDERED: METHADONE 30 MG, METHADONE 5 MG PO SCH (06:00)
== END 2018-06-18 09:25 | disposition home or self-care (01) | DRG 772 ==
LOC: YASAS 12:49 → Y5N 12:50 → Y3W 05-31 11:26
PROVIDERS: ADMIT Neuromusculoskeletal Medicine & OMM; ATTEND Neuromusculoskeletal Medicine & OMM
PROC: HZ42ZZZ Group Counseling for Substance Abuse Treatment, Cognitive-Behavioral (ICD-10-PCS; principal; 2018-05-30)
DX: F10.20 Alcohol dependence, uncomplicated (principal); F11.20 Opioid dependence, uncomplicated; F13.20 Sedative, hypnotic or anxiolytic dependence, uncomplicated; F14.20 Cocaine dependence, uncomplicated; F19.24 Other psychoactive substance dependence with psychoactive substance-induced mood disorder; F39 Unspecified mood [affective] disorder; K21.9 Gastro-esophageal reflux disease without esophagitis; B18.2 Chronic viral hepatitis C; Z86.69 Personal history of other diseases of the nervous system and sense organs
CPT/HCPCS: 36415; 87389

== ENCOUNTER 2018-11-10 10:04 | Inpatient (IN) | payer OTHER ==
[2018-11-10 10:26] VITALS: BMI 19.8
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
[2018-11-10] MEDS ORDERED: MELATONIN 5 MG TABLETS PO PRN (11:29)
[2018-11-10] MEDS ORDERED: hydrOXYzine PAMOATE 25 MG CAPSULE (FP) PO PRN (11:29)
[2018-11-10] MEDS ORDERED: IBUPROFEN 400 MG TABLET (FP) PO PRN (11:29)
[2018-11-10] MEDS ORDERED: BISMUTH SUBSALICYLATE 524 MG/30 ML UD PO PRN (11:29)
[2018-11-10] MEDS ORDERED: MAGNESIUM HYDROX 2400MG/30ML ORAL SUSPENSION 30 ML CUP PO PRN (11:29)
[2018-11-10] MEDS ORDERED: MAG HYDROX/AL HYDROX/SIMETH 30 ML UNIT-DOSE CUP PO PRN (11:29)
[2018-11-10] MEDS ORDERED: chlordiazePOXIDE HCL 25 MG CAPSULE PO ONE (11:29)
[2018-11-10] MEDS ORDERED: NICOTINE POLACRILEX 4 MG GUM BUC PRN (11:29)
[2018-11-10] MEDS ORDERED: ACETAMINOPHEN 325 MG TABLET (FP) PO PRN ×2 (11:29)
[2018-11-10] MEDS ORDERED: MENTHOL/PHENOL 1 EACH UD MM PRN (11:29)
[2018-11-10] MEDS ORDERED: METHOCARBAMOL 500 MG TABLET PO PRN (11:29)
[2018-11-10] MEDS ORDERED: MAGNESIUM CITRATE 300 ML BOTTLE PO PRN (11:29)
[2018-11-10] MEDS ORDERED: chlordiazePOXIDE HCL 25 MG CAPSULE PO PRN (11:29)
[2018-11-10] MEDS ORDERED: LORazepam 2 MG TABLET PO ONE ×3 (11:42→16:00)
[2018-11-10] MEDS ORDERED: LORazepam 1 MG TABLET PO PRN ×2 (11:42)
--- NOTE | 2018-11-10 15:27 | PN ---
[facility] Progress Note Note: patient requested ativan protocol instead of librium
[2018-11-10] MEDS ORDERED: LORazepam 2 MG TABLET PO SCH (17:00)
[2018-11-10] MEDS ORDERED: chlordiazePOXIDE HCL 25 MG CAPSULE PO SCH (17:00)
[2018-11-10] MEDS: LORazepam 2 MG TABLET PO SCH ×2 (18:11→23:26)
[2018-11-10] MEDS ORDERED: THIAMINE HCL 100 MG TABLET (FP) PO SCH (22:00)
[2018-11-11] MEDS ORDERED: METHADONE HCL 40 MG DISPERSABLE TABLET PO SCH (06:00)
[2018-11-11] MEDS: LORazepam 2 MG TABLET PO SCH ×2 (06:12→10:28)
[2018-11-11] MEDS ORDERED: RANITIDINE HCL 150 MG TABLET (FP) PO SCH (10:00)
[2018-11-11] MEDS ORDERED: PRENATAL VITAMINS W/ FOLIC ACID TABLET (FP) PO SCH (10:00)
[2018-11-11 10:10] LABS: HEMATOCRIT 37.4 % (35.4-49); HEMOGLOBIN 12.7 GM/dL (11.7-16.9); MCH 28.8 pg (25.7-33.7); MCHC 33.9 g/dl (32.0-35.9); MEAN CELL VOLUME 84.9 fl (80-96); MEAN PLT VOLUME 8.9 fl (7.5-11.1); PLATELET COUNT 225 K/MM3 (134-434); RDW 13.4 % (11.9-15.9); WHITE BLOOD COUNT 4.9 K/mm3 (4.0-10.0)
[2018-11-11 10:20] LABS: ALBUMIN 3.5 g/dl (3.4-5.0); BILIRUBIN,TOTAL 0.3 mg/dL (0.2-1); BLOOD UREA NITROGEN 8.2 mg/dL (7-18); CALCIUM 9.3 mg/dL (8.5-10.1); CREATININE 0.7 mg/dL (0.55-1.3); POTASSIUM 4.1 mmol/L (3.5-5.1)
--- NOTE | 2018-11-11 11:39 | CONSULT ---
[facility] Psychiatric Consult - Data Date of interview: 11/11/18 Psychiatric History: Patient declined to willow to mortgage or loan underwriter and said that he would be signing out after lunch
[2018-11-11 14:56] VITALS: BP 126/79; PULSE 58; TEMP 98
--- NOTE | 2018-11-11 16:43 | DS ---
[facility] Detox Discharge Summary Admission Date: 11/10/18 Discharge Date: 11/11/18 - History Present History: Alcohol Dependence Additional Comments: 53 years old male admitted on 11/10/18 for acute alcohol withdrawal sx management methadone program 40 mg po daily received methadone 40 mg po today feeling better long history of bipolar treated with depakote patient insists to leave the detox that "things to do" patient is alert oriented x 3 denies suicidal ideation denies dizziness - Physical Exam Results Vital Signs: Vital Signs Temperature 98.0 F 11/11/18 14:55 Pulse Rate 58 L 11/11/18 14:55 Respiratory Rate 18 11/11/18 14:55 Blood Pressure 126/79 11/11/18 14:55 O2 Sat by Pulse Oximetry (%) Pertinent Admission Physical Exam Findings: alcohol withdrawal sx Laboratory Last Values WBC 4.9 K/mm3 (4.0-10.0) 11/11/18 08:00 RBC 4.40 M/mm3 (4.00-5.60) 11/11/18 08:00 Hgb 12.7 GM/dL (11.7-16.9) 11/11/18 08:00 Hct 37.4 % (35.4-49) 11/11/18 08:00 MCV 84.9 fl (80-96) 11/11/18 08:00 MCH 28.8 pg (25.7-33.7) 11/11/18 08:00 MCHC 33.9 g/dl (32.0-35.9) 11/11/18 08:00 RDW 13.4 % (11.9-15.9) 11/11/18 08:00 Plt Count 225 K/MM3 (134-434) 11/11/18 08:00 MPV 8.9 fl (7.5-11.1) 11/11/18 08:00 Sodium 139 mmol/L (136-145) 11/11/18 08:00 Potassium 4.1 mmol/L (3.5-5.1) 11/11/18 08:00 Chloride 103 mmol/L (98-107) 11/11/18 08:00 Carbon Dioxide 29 mmol/L (21-32) 11/11/18 08:00 Anion Gap 7 MMOL/L (8-16) L 11/11/18 08:00 BUN 8.2 mg/dL (7-18) 11/11/18 08:00 Creatinine 0.7 mg/dL (0.55-1.3) 11/11/18 08:00 Est GFR (CKD-EPI)AfAm 124.87 11/11/18 08:00 Est GFR (CKD-EPI)NonAf 107.74 11/11/18 08:00 Random Glucose 92 mg/dL (74-106) 11/11/18 08:00 Calcium 9.3 mg/dL (8.5-10.1) 11/11/18 08:00 Total Bilirubin 0.3 mg/dL (0.2-1) 11/11/18 08:00 AST 18 U/L (15-37) 11/11/18 08:00 ALT 24 U/L (13-61) 11/11/18 08:00 Alkaline Phosphatase 49 U/L (45-117) 11/11/18 08:00 Total Protein 8.0 g/dl (6.4-8.2) 11/11/18 08:00 Albumin 3.5 g/dl (3.4-5.0) 11/11/18 08:00 RPR Titer Nonreactive (NONREACTIVE) 11/11/18 08:00 lab noted - Treatment Hospital Course: Detox Protocol Followed, Responded well Patient has Accepted a Rehab Referral to: return to methadone program - Medication Discharge Medications: Ambulatory Orders Divalproex [Depakote -] 500 mg PO BID 11/03/11 Mirtazapine [Remeron -] 15 mg PO HS 12/29/11 Quetiapine Fumarate [Seroquel -] 50 mg PO HS #30 tablet 07/12/17 Ranitidine HCl [Zantac] 150 mg PO DAILY 05/30/18 - Diagnosis (1) Weight decreased Status: Active (2) mmtp Status: Acute (3) Alcohol dependence with uncomplicated withdrawal Status: Acute (4) Human immunodeficiency virus infection Status: Chronic (5) Methadone maintenance therapy patient Status: Chronic (6) Substance induced mood disorder Status: Suspected (7) Bipolar disorder Status: Suspected (8) PPD positive Status: Resolved - AMA Did Patient Leave Against Medical Advice: Yes CIWA Score - CIWA Score Nausea/Vomitin-No Nausea/No Vomiting Muscle Tremors: 3 Anxiety: 3 Agitation: 1-Slight > Activity Paroxysmal Sweats: 1-Minimal Palms Moist Orientation: 0-Oriented Tacttile Disturbances: 0-None Auditory Disturbances: 0-None Visual Disturbances: 0-None Headache: 1-Very Mild CIWA-Ar Total Score: 9
[2018-11-12] MEDS ORDERED: LORazepam 1 MG TABLET PO SCH ×2 (05:00)
[2018-11-12] MEDS ORDERED: chlordiazePOXIDE HCL 25 MG CAPSULE PO SCH (05:00)
[2018-11-13] MEDS ORDERED: LORazepam 0.5 MG TABLET PO PRN ×2
[2018-11-13] MEDS ORDERED: chlordiazePOXIDE HCL 10 MG CAPSULE PO PRN
[2018-11-13] MEDS ORDERED: chlordiazePOXIDE HCL 10 MG CAPSULE PO SCH (05:00)
[2018-11-13] MEDS ORDERED: LORazepam 0.5 MG TABLET PO SCH (05:00)
[2018-11-14] MEDS ORDERED: LORazepam 0.5 MG TABLET PO ONE ×2 (05:00)
[2018-11-14] MEDS ORDERED: chlordiazePOXIDE HCL 10 MG CAPSULE PO SCH (05:00)
[2018-11-15] MEDS ORDERED: chlordiazePOXIDE HCL 10 MG CAPSULE PO ONE (05:00)
--- NOTE | 2018-11-19 13:05 | EKG ---
Test Reason : Blood Pressure : / mmHG Vent. Rate : 043 BPM Atrial Rate : 043 BPM P-R Int : 198 ms QRS Dur : 086 ms QT Int : 502 ms P-R-T Axes : 111 152 131 degrees QTc Int : 424 ms SUSPECT ARM LEAD REVERSAL, INTERPRETATION ASSUMES NO REVERSAL MARKED SINUS BRADYCARDIA MINIMAL VOLTAGE CRITERIA FOR LVH, MAY BE NORMAL VARIANT NONSPECIFIC ST AND T WAVE ABNORMALITY ABNORMAL ECG WHEN COMPARED WITH ECG OF 12-JUL-2017 09:42, LEAD REVERSAL Confirmed by PRETTY WILDER MD ([id number]) on 11/19/2018 1:05:15 PM Referred By: MARIBEL GOTTI Confirmed By:PRETTY WILDER MD
== END 2018-11-11 15:50 | disposition left against medical advice (07) | DRG 770 ==
LOC: YASAS 10:04 → Y3N 12:58
PROVIDERS: ADMIT Surgery; ATTEND Surgery
PROC: HZ2ZZZZ Detoxification Services for Substance Abuse Treatment (ICD-10-PCS; principal; 2018-11-10)
DX: F10.230 Alcohol dependence with withdrawal, uncomplicated (principal); F11.20 Opioid dependence, uncomplicated; F14.20 Cocaine dependence, uncomplicated; F17.210 Nicotine dependence, cigarettes, uncomplicated; F31.9 Bipolar disorder, unspecified; F19.24 Other psychoactive substance dependence with psychoactive substance-induced mood disorder; Z21 Asymptomatic human immunodeficiency virus [HIV] infection status; R76.11 Nonspecific reaction to tuberculin skin test without active tuberculosis; R63.4 Abnormal weight loss; R00.1 Bradycardia, unspecified; K21.9 Gastro-esophageal reflux disease without esophagitis
CPT/HCPCS: 36415; 80053; 85027; 86593; 93005; 93010

== ENCOUNTER 2019-01-24 11:07 | Inpatient (IN) | payer OTHER ==
[2019-01-24 12:18] VITALS: BMI 18.1
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
[2019-01-24] MEDS ORDERED: MENTHOL/PHENOL 1 EACH UD MM PRN (14:11)
[2019-01-24] MEDS ORDERED: ACETAMINOPHEN 325 MG TABLET (FP) PO PRN ×2 (14:11)
[2019-01-24] MEDS ORDERED: BISMUTH SUBSALICYLATE 262 MG/15 ML BTL PO PRN (14:11)
[2019-01-24] MEDS ORDERED: IBUPROFEN 400 MG TABLET (FP) PO PRN (14:11)
[2019-01-24] MEDS ORDERED: hydrOXYzine PAMOATE 25 MG CAPSULE (FP) PO PRN (14:11)
[2019-01-24] MEDS ORDERED: MAGNESIUM HYDROX 2400MG/30ML ORAL SUSPENSION 30 ML CUP PO PRN (14:11)
[2019-01-24] MEDS ORDERED: MAG HYDROX/AL HYDROX/SIMETH 30 ML UNIT-DOSE CUP PO PRN (14:11)
[2019-01-24] MEDS ORDERED: MELATONIN 5 MG TABLETS PO PRN (14:11)
[2019-01-24] MEDS ORDERED: MAGNESIUM CITRATE 300 ML BOTTLE PO PRN (14:11)
[2019-01-24] MEDS ORDERED: chlordiazePOXIDE HCL 10 MG CAPSULE PO PRN (14:14)
[2019-01-24] MEDS ORDERED: LORazepam 1 MG TABLET PO PRN (14:52)
[2019-01-24] MEDS: LORazepam 2 MG TABLET PO SCH ×2 (16:56→22:23)
[2019-01-24] MEDS ORDERED: chlordiazePOXIDE HCL 25 MG CAPSULE PO SCH (21:00)
[2019-01-24] MEDS: THIAMINE HCL 100 MG TABLET (FP) PO SCH (22:23)
[2019-01-25] MEDS: LORazepam 2 MG TABLET PO SCH ×4 (07:17→22:27)
[2019-01-25] MEDS: PRENATAL VITAMINS W/ FOLIC ACID TABLET (FP) PO SCH (10:11)
[2019-01-25] MEDS ORDERED: METHADONE HCL 40 MG DISPERSABLE TABLET PO ONE (11:15)
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
[2019-01-25] MEDS ORDERED: FLU VACCINE QUAD 60 MCG/0.5 ML (MDV 19-20) IM ONE (12:00)
--- NOTE | 2019-01-25 14:36 | PN ---
[facility] CIWA - CIWA Score Nausea/Vomitin-Mild Nausea/No Vomiting Muscle Tremors: 2 Anxiety: 2 Agitation: 1-Slight > Activity Paroxysmal Sweats: 3 Orientation: 0-Oriented Tacttile Disturbances: 2-Mild Itch/Numbness/Burn Auditory Disturbances: 0-None Visual Disturbances: 0-None Headache: 0-None Present CIWA-Ar Total Score: 11 [facility] Progress Note (SOAP) Subjective: interrupted sleep, cold sweats , shakes Objective: 01/25/19 14:32 Vital Signs Temperature 98.4 F 01/25/19 13:51 Pulse Rate 76 01/25/19 13:51 Respiratory Rate 18 01/25/19 13:51 Blood Pressure 101/67 01/25/19 13:51 O2 Sat by Pulse Oximetry (%) pending labs 01/25/19 14:36 pt aox3 in nad ambulating Assessment: 01/25/19 14:36 withdrawal sx's Plan: cont. detox increase fluids f/up pending labs
[2019-01-25] MEDS: THIAMINE HCL 100 MG TABLET (FP) PO SCH (22:27)
[2019-01-26] MEDS ORDERED: chlordiazePOXIDE 5 MG CAPSULE PO SCH (05:00)
[2019-01-26] MEDS: LORazepam 1 MG TABLET PO SCH ×2 (05:24→10:58)
[2019-01-26] MEDS ORDERED: METHADONE HCL 40 MG DISPERSABLE TABLET PO SCH (06:00)
[2019-01-26 09:25] VITALS: BP 98/63; PULSE 61; TEMP 97
[2019-01-26] MEDS: PRENATAL VITAMINS W/ FOLIC ACID TABLET (FP) PO SCH (10:58)
--- NOTE | 2019-01-26 11:26 | PN ---
[facility] Progress Note Note: pt states he wants to leave because he wants to go to his methadone program and chose to sign out AMA. pt was made aware of risk of relapse, seizures, DT and or loss however pt insisted on leaving and signed out AMA.
--- NOTE | 2019-01-26 11:27 | DS ---
[facility] Detox Discharge Summary Admission Date: 01/24/19 - History Present History: Alcohol Dependence, Sedative Dependence, MMTP - Physical Exam Results Vital Signs: Vital Signs Temperature 97.0 F L 01/26/19 09:25 Pulse Rate 61 01/26/19 09:25 Respiratory Rate 18 01/26/19 09:25 Blood Pressure 98/63 01/26/19 09:25 O2 Sat by Pulse Oximetry (%) Pertinent Admission Physical Exam Findings: pt arrived in withdrawals Vital Signs Temperature 97.0 F L 01/26/19 09:25 Pulse Rate 61 01/26/19 09:25 Respiratory Rate 18 01/26/19 09:25 Blood Pressure 98/63 01/26/19 09:25 O2 Sat by Pulse Oximetry (%) today pt is [id number] ambulating chose to sign out AMA risks explained; pt acknowledged - Treatment Hospital Course: Rehab Referral Accepted Patient has Accepted a Rehab Referral to: referred to his MMTP - Medication Discharge Medications: Ambulatory Orders Divalproex [Depakote -] 500 mg PO BID 11/03/11 Mirtazapine [Remeron -] 15 mg PO HS 12/29/11 Quetiapine Fumarate [Seroquel -] 50 mg PO HS #30 tablet 07/12/17 - AMA Did Patient Leave Against Medical Advice: Yes
[2019-01-27] MEDS ORDERED: LORazepam 0.5 MG TABLET PO PRN
[2019-01-27] MEDS ORDERED: chlordiazePOXIDE HCL 10 MG CAPSULE PO PRN
[2019-01-27] MEDS ORDERED: LORazepam 0.5 MG TABLET PO SCH (05:00)
[2019-01-27] MEDS ORDERED: chlordiazePOXIDE HCL 10 MG CAPSULE PO SCH (05:00)
[2019-01-28] MEDS ORDERED: chlordiazePOXIDE HCL 10 MG CAPSULE PO ONE (05:00)
[2019-01-28] MEDS ORDERED: LORazepam 0.5 MG TABLET PO ONE (05:00)
== END 2019-01-26 11:35 | disposition left against medical advice (07) | DRG 770 ==
LOC: YASAS 11:07 → Y6N 14:31
PROVIDERS: ADMIT Allergy & Immunology; ATTEND Allergy & Immunology
PROC: HZ2ZZZZ Detoxification Services for Substance Abuse Treatment (ICD-10-PCS; principal; 2019-01-24)
DX: F10.230 Alcohol dependence with withdrawal, uncomplicated (principal); F11.20 Opioid dependence, uncomplicated; F14.20 Cocaine dependence, uncomplicated; F12.20 Cannabis dependence, uncomplicated; F13.10 Sedative, hypnotic or anxiolytic abuse, uncomplicated; F17.210 Nicotine dependence, cigarettes, uncomplicated; F39 Unspecified mood [affective] disorder; F31.9 Bipolar disorder, unspecified; F19.24 Other psychoactive substance dependence with psychoactive substance-induced mood disorder; F19.282 Other psychoactive substance dependence with psychoactive substance-induced sleep disorder; Z21 Asymptomatic human immunodeficiency virus [HIV] infection status; K21.9 Gastro-esophageal reflux disease without esophagitis; Z86.19 Personal history of other infectious and parasitic diseases; Z88.8 Allergy status to other drugs, medicaments and biological substances; Z86.69 Personal history of other diseases of the nervous system and sense organs
CPT/HCPCS: Q2036

== ENCOUNTER 2022-06-29 10:28 | Inpatient (IN) | payer OTHER ==
[2022-06-29 11:00] VITALS: BMI 19.1
[2022-06-29] MEDS ORDERED: BENZOCAINE/MENTHOL (CHLORASEPTIC ) LOZENGE MM PRN (11:27)
[2022-06-29] MEDS ORDERED: BENZONATATE 200 MG CAPSULE PO PRN (11:27)
[2022-06-29] MEDS ORDERED: diazePAM 5 MG TABLET PO PRN (11:27)
[2022-06-29] MEDS ORDERED: NALOXONE HCL (KLOXXADO) 8 MG SPRAY NS PRN (11:27)
[2022-06-29] MEDS ORDERED: LOPERAMIDE HCL 2 MG CAPSULE PO PRN (11:27)
[2022-06-29] MEDS ORDERED: POLYETHYLENE GLYCOL (HEALTHYLAX) 3350 17 GM PACKET PO PRN (11:27)
[2022-06-29] MEDS ORDERED: BISMUTH SUBSALICYLATE 262 MG/15 ML BTL PO PRN (11:27)
[2022-06-29] MEDS ORDERED: hydrOXYzine PAMOATE 25 MG CAPSULE (FP) PO PRN (11:27)
[2022-06-29] MEDS ORDERED: ONDANSETRON *ODT* 4 MG TABLET SL PRN (11:27)
[2022-06-29] MEDS ORDERED: NALOXONE HCL 0.4 MG/ML VIAL IM PRN (11:27)
[2022-06-29] MEDS ORDERED: DICYCLOMINE HCL 10 MG CAPSULE PO PRN (11:27)
[2022-06-29] MEDS ORDERED: guaiFENesin 600 MG TABLET.ER (FP) PO PRN (11:27)
[2022-06-29] MEDS ORDERED: MAG HYDROX/AL HYDROX/SIMETH 30 ML UNIT-DOSE CUP PO PRN (11:27)
[2022-06-29] MEDS ORDERED: ACETAMINOPHEN 325 MG TABLET (FP) PO PRN (11:27)
[2022-06-29] MEDS ORDERED: MAGNESIUM HYDROX 2400MG/30ML ORAL SUSPENSION 30 ML CUP PO PRN (11:27)
[2022-06-29] MEDS ORDERED: NICOTINE 10 MG CARTRIDGE (INHALER) IH PRN (11:27)
[2022-06-29] MEDS ORDERED: IBUPROFEN 400 MG TABLET (FP) PO PRN (11:27)
[2022-06-29] MEDS ORDERED: METHOCARBAMOL 500 MG TABLET PO PRN (11:27)
[2022-06-29 17:16] LABS: HEMATOCRIT 35.4 % (35.4-49); HEMOGLOBIN 11.9 GM/dL (11.7-16.9); MCH 29.3 pg (25.7-33.7); MCHC 33.6 g/dl (32.0-35.9); MEAN CELL VOLUME 87.3 fl (80-96); MEAN PLT VOLUME 8.7 fl (7.5-11.1); PLATELET COUNT 184 10^3/uL (134-434); RBC 4.06 M/mm3 (4.00-5.60); RDW 14.7 % (11.9-15.9); WHITE BLOOD COUNT 4.8 K/mm3 (4.0-10.0)
[2022-06-29 17:55] LABS: CALCIUM 9.5 mg/dL (8.5-10.1)
[2022-06-29 17:56] LABS: ALBUMIN 3.6 g/dl (3.4-5.0); BLOOD UREA NITROGEN 14.8 mg/dL (7-18)
[2022-06-29 17:57] LABS: CREATININE 0.7 mg/dL (0.55-1.3)
[2022-06-29 17:58] LABS: BILIRUBIN,TOTAL 0.2 mg/dL (0.2-1)
[2022-06-29] MEDS: diazePAM 5 MG TABLET PO SCH ×2 (18:01→23:04)
[2022-06-29] MEDS: THIAMINE HCL 100 MG TABLET (FP) PO SCH (23:04)
[2022-06-29] MEDS: MELATONIN 5 MG TABLETS PO SCH (23:04)
[2022-06-30] MEDS: diazePAM 5 MG TABLET PO SCH ×4 (05:55→23:59)
[2022-06-30] MEDS: methaDONE HCL 40 MG DISPERSABLE TABLET PO SCH (06:16)
[2022-06-30] MEDS: PRENATAL VITAMINS W/ FOLIC ACID TABLET (FP) PO SCH (10:36)
[2022-06-30] MEDS: THIAMINE HCL 100 MG TABLET (FP) PO SCH (23:59)
[2022-06-30] MEDS: MELATONIN 5 MG TABLETS PO SCH (23:59)
[2022-07-01] MEDS: diazePAM 5 MG TABLET PO SCH ×3 (05:32→22:30)
[2022-07-01] MEDS: methaDONE HCL 40 MG DISPERSABLE TABLET PO SCH (05:32)
[2022-07-01] MEDS: PRENATAL VITAMINS W/ FOLIC ACID TABLET (FP) PO SCH (10:28)
[2022-07-01] MEDS: MELATONIN 5 MG TABLETS PO SCH (22:29)
[2022-07-01] MEDS: THIAMINE HCL 100 MG TABLET (FP) PO SCH (22:30)
[2022-07-01] MEDS: IBUPROFEN 600 MG TABLET (FP) PO PRN (22:33)
[2022-07-02] MEDS: methaDONE HCL 40 MG DISPERSABLE TABLET PO SCH (05:38)
[2022-07-02] MEDS: diazePAM 5 MG TABLET PO SCH ×2 (05:38→18:16)
[2022-07-02] MEDS: PRENATAL VITAMINS W/ FOLIC ACID TABLET (FP) PO SCH (11:00)
[2022-07-02] MEDS: IBUPROFEN 600 MG TABLET (FP) PO PRN (18:19)
[2022-07-02] MEDS: MELATONIN 5 MG TABLETS PO SCH (23:33)
[2022-07-02] MEDS: THIAMINE HCL 100 MG TABLET (FP) PO SCH (23:33)
[2022-07-03] MEDS: methaDONE HCL 40 MG DISPERSABLE TABLET PO SCH (05:43)
[2022-07-03] MEDS ORDERED: diazePAM 5 MG TABLET PO ONE (06:00)
[2022-07-03 06:46] VITALS: RESP 16
[2022-07-03 09:51] VITALS: BP 93/61; PULSE 60; TEMP 97.8
[2022-07-03] MEDS: PRENATAL VITAMINS W/ FOLIC ACID TABLET (FP) PO SCH (11:04)
== END 2022-07-03 10:08 | disposition home or self-care (01) | DRG 773 ==
LOC: YASAS 10:28 → Y3N 11:46
PROVIDERS: ADMIT Allergy & Immunology; ATTEND Surgery
PROC: HZ2ZZZZ Detoxification Services for Substance Abuse Treatment (ICD-10-PCS; principal; 2022-06-29)
DX: F10.230 Alcohol dependence with withdrawal, uncomplicated (principal); F11.20 Opioid dependence, uncomplicated; F14.20 Cocaine dependence, uncomplicated; F17.210 Nicotine dependence, cigarettes, uncomplicated; F19.24 Other psychoactive substance dependence with psychoactive substance-induced mood disorder; F39 Unspecified mood [affective] disorder; R63.4 Abnormal weight loss; Z68.1 Body mass index [BMI] 19.9 or less, adult; Z86.19 Personal history of other infectious and parasitic diseases; Z88.8 Allergy status to other drugs, medicaments and biological substances
CPT/HCPCS: 36415; 80053; 85027; 86780; 87811; C9803-CS; U0003; U0005

== ENCOUNTER 2024-03-21 14:21 | Inpatient (IN) | payer OTHER ==
[2024-03-21 16:16] VITALS: BMI 17.2
[2024-03-21] MEDS ORDERED: diazePAM 5 MG TABLET PO PRN (16:39)
[2024-03-21] MEDS ORDERED: POLYETHYLENE GLYCOL (HEALTHYLAX) 3350 17 GM PACKET PO PRN (16:51)
[2024-03-21] MEDS ORDERED: NALOXONE (NARCAN) HCL 4 MG/0.1 ML SPRAY NS PRN (16:51)
[2024-03-21] MEDS ORDERED: BISMUTH SUBSALICYLATE 524 MG/30 ML PO PRN (16:51)
[2024-03-21] MEDS ORDERED: P-EPHED 60MG/TRIPROLIDI 2.5MG TABLET PO PRN (16:51)
[2024-03-21] MEDS ORDERED: IBUPROFEN 400 MG TABLET (FP) PO PRN (16:51)
[2024-03-21] MEDS ORDERED: ONDANSETRON *ODT* 4 MG TABLET SL PRN (16:51)
[2024-03-21] MEDS ORDERED: NICOTINE POLACRILEX 2 MG LOZENGE BC PRN (16:51)
[2024-03-21] MEDS ORDERED: BENZOCAINE/MENTHOL (CHLORASEPTIC ) LOZENGE MM PRN (16:51)
[2024-03-21] MEDS ORDERED: BENZONATATE 200 MG CAPSULE PO PRN (16:51)
[2024-03-21] MEDS ORDERED: MAGNESIUM HYDROX 2400MG/30ML ORAL SUSPENSION 30 ML CUP PO PRN (16:51)
[2024-03-21] MEDS ORDERED: MAG HYDROX/AL HYDROX/SIMETH 30 ML UNIT-DOSE CUP PO PRN (16:51)
[2024-03-21] MEDS ORDERED: DICYCLOMINE HCL 10 MG CAPSULE PO PRN (16:51)
[2024-03-21] MEDS ORDERED: NICOTINE POLACRILEX 2 MG GUM BUC PRN (16:51)
[2024-03-21] MEDS ORDERED: ACETAMINOPHEN 325 MG TABLET (FP) PO PRN (16:51)
[2024-03-21] MEDS ORDERED: guaiFENesin 600 MG TABLET.ER (FP) PO PRN (16:51)
[2024-03-21] MEDS ORDERED: LOPERAMIDE HCL 2 MG CAPSULE PO PRN (16:51)
[2024-03-21] MEDS ORDERED: hydrOXYzine PAMOATE 25 MG CAPSULE (FP) PO PRN (16:51)
[2024-03-21] MEDS ORDERED: diazePAM 5 MG TABLET ONE (17:00)
[2024-03-21] MEDS ORDERED: IBUPROFEN 600 MG TABLET (FP) PO ONE (17:00)
[2024-03-21] MEDS: diazePAM 5 MG TABLET PO SCH (17:24)
[2024-03-21] MEDS: IBUPROFEN 600 MG TABLET (FP) PO PRN (17:25)
[2024-03-21] MEDS: THIAMINE 100 MG TABLET PO SCH (22:53)
[2024-03-21] MEDS: MELATONIN 5 MG TABLETS PO SCH (22:53)
[2024-03-22] MEDS: diazePAM 5 MG TABLET PO SCH (05:29)
[2024-03-22] MEDS: PRENATAL VITAMINS W/ FOLIC ACID TABLET (FP) PO SCH (10:19)
[2024-03-22] MEDS: methaDONE HCL 10 MG TABLET PO SCH (10:20)
[2024-03-22 13:47] LABS: POTASSIUM 3.6 mmol/L (3.5-5.1)
[2024-03-22 13:48] LABS: HEMATOCRIT 37.4 % (35.4-49); HEMOGLOBIN 12.6 GM/dL (11.7-16.9); MCH 29.9 pg (25.7-33.7); MCHC 33.7 g/dl (32.0-35.9); MEAN CELL VOLUME 88.9 fl (80-96); MEAN PLT VOLUME 8.9 fl (7.5-11.1); PLATELET COUNT 168 10^3/uL (134-434); RBC 4.21 M/mm3 (4.00-5.60); RDW 15.2 % (11.9-15.9); WHITE BLOOD COUNT 8.2 K/mm3 (4.0-10.0)
[2024-03-22 13:53] LABS: ALBUMIN 3.6 g/dl (3.4-5.0); BLOOD UREA NITROGEN 13.4 mg/dL (7-18)
[2024-03-22 13:56] LABS: CREATININE 0.6 mg/dL (0.55-1.3)
[2024-03-22 13:58] LABS: BILIRUBIN,TOTAL 0.2 mg/dL (0.2-1); TOT PROT 7.7 g/dl (6.4-8.2)
[2024-03-22] MEDS: METHOCARBAMOL 500 MG TABLET PO PRN (22:33)
[2024-03-23] MEDS: diazePAM 5 MG TABLET PO SCH (05:49)
[2024-03-24] MEDS: diazePAM 5 MG TABLET PO ONE (06:23)
[2024-03-24] MEDS: NALOXONE (NYS OPIOID OVERDOSE PROGRAM) 4 MG/0.1 ML SPRAY NS SCH (11:40)
[2024-03-25 10:02] VITALS: BP 103/71; PULSE 90; RESP 20; TEMP 97
[2024-03-25] MEDS: NALOXONE (NYS OPIOID OVERDOSE PROGRAM) 4 MG/0.1 ML SPRAY NS SCH (12:12)
== END 2024-03-25 13:06 | disposition other institution (70) | DRG 773 ==
LOC: YASAS 14:21 → Y3N 17:27
PROVIDERS: ADMIT Allergy & Immunology; ATTEND Surgery
PROC: HZ2ZZZZ Detoxification Services for Substance Abuse Treatment (ICD-10-PCS; principal; 2024-03-21)
DX: F10.230 Alcohol dependence with withdrawal, uncomplicated (principal); F11.20 Opioid dependence, uncomplicated; F14.20 Cocaine dependence, uncomplicated; F12.20 Cannabis dependence, uncomplicated; F17.210 Nicotine dependence, cigarettes, uncomplicated; F20.9 Schizophrenia, unspecified; R73.9 Hyperglycemia, unspecified; Z86.19 Personal history of other infectious and parasitic diseases; Z86.69 Personal history of other diseases of the nervous system and sense organs; Z59.01 Sheltered homelessness; Z56.0 Unemployment, unspecified; Z88.8 Allergy status to other drugs, medicaments and biological substances
CPT/HCPCS: 36415; 80053; 80305; 82140; 85027; 86780; 87811; 93005; 93010

== ENCOUNTER 2024-03-25 13:11 | Inpatient (IN) | payer OTHER ==
[2024-03-25] MEDS ORDERED: MAG HYDROX/AL HYDROX/SIMETH 30 ML UNIT-DOSE CUP PO PRN (17:56)
[2024-03-25] MEDS ORDERED: LOPERAMIDE HCL 2 MG CAPSULE PO PRN (17:56)
[2024-03-25] MEDS ORDERED: POLYETHYLENE GLYCOL (HEALTHYLAX) 3350 17 GM PACKET PO PRN (17:56)
[2024-03-25] MEDS ORDERED: NALOXONE (NARCAN) HCL 4 MG/0.1 ML SPRAY NS PRN (17:56)
[2024-03-25] MEDS ORDERED: guaiFENesin 600 MG TABLET.ER (FP) PO PRN (17:56)
[2024-03-25] MEDS ORDERED: BENZONATATE 200 MG CAPSULE PO PRN (17:56)
[2024-03-25] MEDS ORDERED: ACETAMINOPHEN 325 MG TABLET (FP) PO PRN (17:56)
[2024-03-25] MEDS ORDERED: MAGNESIUM HYDROX 2400MG/30ML ORAL SUSPENSION 30 ML CUP PO PRN (17:56)
[2024-03-25] MEDS ORDERED: NALOXONE HCL 0.4 MG/ML VIAL IVPUSH PRN (17:56)
[2024-03-25] MEDS ORDERED: BENZOCAINE/MENTHOL (CHLORASEPTIC ) LOZENGE MM PRN (17:56)
[2024-03-25] MEDS ORDERED: IBUPROFEN 400 MG TABLET (FP) PO PRN (17:56)
[2024-03-25] MEDS: MELATONIN 5 MG TABLETS PO SCH (21:25)
[2024-03-25] MEDS: THIAMINE 100 MG TABLET PO SCH (21:25)
[2024-03-25] MEDS: METHOCARBAMOL 500 MG TABLET PO PRN (21:26)
[2024-03-26] MEDS: methaDONE HCL 10 MG TABLET PO SCH (05:36)
[2024-03-26] MEDS: PRENATAL VITAMINS W/ FOLIC ACID TABLET (FP) PO SCH (09:58)
[2024-03-26] MEDS: SUVOREXANT 10 MG TABLET PO PRN (21:04)
[2024-03-30] MEDS: IBUPROFEN 600 MG TABLET (FP) PO PRN (08:11)
[2024-04-02] MEDS: methaDONE HCL 10 MG TABLET PO SCH (13:04)
[2024-04-03] MEDS: hydrOXYzine PAMOATE 25 MG CAPSULE (FP) PO PRN (02:21)
[2024-04-04] MEDS: BACLOFEN 10 MG TABLET (FP) PO SCH (21:32)
[2024-04-04] MEDS: SUVOREXANT 15 MG TABLET PO PRN (21:35)
[2024-04-08 07:06] VITALS: BP 122/91; PULSE 79; RESP 16; TEMP 98.2
[2024-04-08] MEDS: NALOXONE (NYS OPIOID OVERDOSE PROGRAM) 4 MG/0.1 ML SPRAY NS SCH (10:17)
== END 2024-04-08 10:37 | disposition home or self-care (01) | DRG 772 ==
LOC: YASAS 13:11 → Y3NR 13:13 → Y5N 03-26 09:29
PROVIDERS: ADMIT Allergy & Immunology; ATTEND Psychiatry & Neurology Pain Medicine
PROC: HZ42ZZZ Group Counseling for Substance Abuse Treatment, Cognitive-Behavioral (ICD-10-PCS; principal; 2024-03-25)
DX: F10.20 Alcohol dependence, uncomplicated (principal); F11.20 Opioid dependence, uncomplicated; F14.20 Cocaine dependence, uncomplicated; F12.20 Cannabis dependence, uncomplicated; F17.210 Nicotine dependence, cigarettes, uncomplicated; F20.9 Schizophrenia, unspecified; F19.282 Other psychoactive substance dependence with psychoactive substance-induced sleep disorder; F39 Unspecified mood [affective] disorder; F19.24 Other psychoactive substance dependence with psychoactive substance-induced mood disorder; Z21 Asymptomatic human immunodeficiency virus [HIV] infection status; Z86.19 Personal history of other infectious and parasitic diseases; Z88.8 Allergy status to other drugs, medicaments and biological substances; Z59.01 Sheltered homelessness
CPT/HCPCS: 0241U-QW; 36415; 82962; 86803; 87522; J0475